=== PATIENT | female | born 1970 | race Caucasian/White ===

== ENCOUNTER → 2019-02-05 | Outpatient (CLI) | payer BC | END | disposition home or self-care (01) | LOC: LAB 19:33 → LAB SHORT 19:33 | PROVIDERS: Registered Nurse | DX: Z01.419 Encounter for gynecological examination (general) (routine) without abnormal findings (principal) | CPT/HCPCS: G0123 ==

== ENCOUNTER 2020-09-06 06:58 | Day surgery (SDC) | payer BC ==
[~2020-09-06] VITALS: Ht 167.6 cm; Wt 58.0 kg
[~2020-09-06 06:58] MED LIST: ALPR.5 PO; ESTRADIOL1 MG PO; MONT10T PO; MUPIROCIN1 G4; PROG100 PO; QVAR REDIHALE10.6 G3 INH; VALA500 PO
== END 2020-09-06 09:10 | disposition home or self-care (01) ==
LOC: ORSCSDS 06:58
PROVIDERS: Student in an Organized Health Care Education/Training Program
PROC: 0DBL8ZX Excision of Transverse Colon, Via Natural or Artificial Opening Endoscopic, Diagnostic (ICD-10-PCS; principal; 2020-09-06 08:00)
PROC: 0DBN8ZX Excision of Sigmoid Colon, Via Natural or Artificial Opening Endoscopic, Diagnostic (ICD-10-PCS; principal; 2020-09-06 08:00)
PROC: 0DBH8ZX Excision of Cecum, Via Natural or Artificial Opening Endoscopic, Diagnostic (ICD-10-PCS; principal; 2020-09-06 08:00)
DX: Z12.11 Encounter for screening for malignant neoplasm of colon (principal); D12.0 Benign neoplasm of cecum; D12.3 Benign neoplasm of transverse colon; K63.5 Polyp of colon; Z87.891 Personal history of nicotine dependence; Z79.899 Other long term (current) drug therapy
CPT/HCPCS: 88305; J0330; J0461; J2250; J2405; J2704; J7120